=== PATIENT | female | born 1980 | race Caucasian/White ===

== ENCOUNTER 2016-10-15 12:12 | Emergency (ER) | payer OTHER ==
[2016-10-15 12:50] LABS: EOSINOPHIL (%) 0.3 % (0-5); HEMATOCRIT 38.9 % (36.0-46.0); IMMATURE GRANULOCYTE (%) 0.4 % (0.0-0.7); INSTRUMENT ABS NEUTROPHIL CT 7.7 K/uL; LYMPHOCYTE COUNT 0.5 K/uL (1.0-2.8); MCH 33.1 PG (29.0-34.0); MCHC 33.9 G/DL (30.0-36.0); MCV 97.5 FL (83-99); MEAN PLAT.VOLUME 9.2 uM^3 (9.5-12.4); MONOCYTE (%) 8.1 % (3-12); MONOCYTE COUNT 0.7 K/uL (0-0.8); NEUTROPHIL COUNT 7.7 K/uL (1.8-6.4); PLATELET COUNT 318 K/uL (156-360); RBC DIS.WIDTH-CV 11.6 % (11.8-14.6); RBC DIS.WIDTH-SD 41.8 % (39-53); RED BLOOD COUNT 3.99 M/uL (3.80-5.20); WHITE BLOOD COUNT 9.1 K/uL (4.1-10.2)
[2016-10-15 12:59] LABS: AMYLASE 52 IU/L (1-118); CHLORIDE 101 mEq/L (99-109); POTASSIUM 4.4 mEq/L (3.7-5.4); SODIUM 133 mEq/L (136-147)
[2016-10-15 13:01] LABS: GLUCOSE 106 mg/dL (70-99)
[2016-10-15 13:03] LABS: ANION GAP 12 MEQ/L (2-14)
[2016-10-15 13:04] LABS: SERUM ETHYL ALCOHOL 29 mg/dL
[2016-10-15 13:05] LABS: GFR ESTIMATE (CALCULATED) > 59 mL/min/
[2016-10-15 13:06] LABS: UREA NITROGEN (BUN) 10 mg/dL (9-23)
[2016-10-15 13:08] LABS: LIPASE 17 U/L (1.0-51.0)
[2016-10-15 13:14] LABS: QUANTITATIVE HCG < 4.0 MIU/ML
[2016-10-15] MEDS ORDERED: PERCOCET 5/31 TABLET PO (14:44)
[2016-10-19] MEDS ORDERED: ADDERALL XR 1010 MG PO (16:02)
[2016-10-19] MEDS ORDERED: FISH OIL 1,0001 EAC7 PO (16:06)
[2016-10-19] MEDS ORDERED: [UNRECOGNIZED DRUG - OTHER] PO (16:07)
[2016-10-19] MEDS ORDERED: [UNRECOGNIZED DRUG - OTHER] PO (16:08)
[2016-10-19] MEDS ORDERED: EPIPEN ADU0.3 MG/0.3 IM (16:08)
== END 2016-10-15 15:25 | disposition home or self-care (01) ==
LOC: TRA 12:12
PROVIDERS: Emergency Medicine
DX: S42.021A Displaced fracture of shaft of right clavicle, initial encounter for closed fracture (principal); S60.512A Abrasion of left hand, initial encounter; S70.311A Abrasion, right thigh, initial encounter; S80.211A Abrasion, right knee, initial encounter; S30.810A Abrasion of lower back and pelvis, initial encounter; S06.9X9A Unspecified intracranial injury with loss of consciousness of unspecified duration, initial encounter; V10.4XXA Pedal cycle driver injured in collision with pedestrian or animal in traffic accident, initial encounter; Y93.55 Activity, bike riding
CPT/HCPCS: 70450; 71260; 72125; 72128; 72129; 72132; 73000; 73030; 74177; 80048; 81003; 82150; 83690; 84702; 85025; 86850; 86900; 86901; 99281; 99285; G0480; J2270

== ENCOUNTER 2016-10-20 06:43 | Day surgery (SDC) | payer OTHER ==
[~2016-10-20] VITALS: Ht 167.6 cm; Wt 59.0 kg
[~2016-10-20 06:43] MED LIST: ADDERALL XR 1010 MG PO; EPIPEN ADU0.3 MG/0.3 IM; FISH OIL 1,0001 EAC7 PO; PERCOCET 5/31 TABLET PO; [UNRECOGNIZED DRUG - OTHER] PO; [UNRECOGNIZED DRUG - OTHER] PO
[2016-10-20] MEDS ORDERED: DILAUDID2 MG PO (07:04)
[2016-10-20] MEDS ORDERED: VITAMIN C1000 MG PO (07:05)
[2016-10-20 07:12] VITALS: BP 120/79
[2016-10-20 08:20] LABS: METH RESISTANT S AUREUS PCR NEGATIVE (NEGATIVE)
[2016-10-20 08:21] LABS: PROBE CHECK PASS; SPECIMEN PROCESSING CONTROL PASS
[2016-10-20 12:15] VITALS: BP 136/84
[2016-10-20 13:30] VITALS: BP 122/74
== END 2016-10-20 13:45 | disposition home or self-care (01) ==
LOC: SDC 06:43
PROVIDERS: Orthopaedic Surgery
PROC: 0PS904Z Reposition Right Clavicle with Internal Fixation Device, Open Approach (ICD-10-PCS; principal; 2016-10-20)
DX: S42.031A Displaced fracture of lateral end of right clavicle, initial encounter for closed fracture (principal); V10.0XXA Pedal cycle driver injured in collision with pedestrian or animal in nontraffic accident, initial encounter; Y93.55 Activity, bike riding; Y92.488 Other paved roadways as the place of occurrence of the external cause; F41.8 Other specified anxiety disorders; F17.210 Nicotine dependence, cigarettes, uncomplicated
CPT/HCPCS: 73000; 73020; 76000; 87641; C1713; J0131; J0690; J1100; J1170; J2250; J2405; J3010

== ENCOUNTER 2017-05-01 13:16 | Day surgery (SDC) | payer OTHER ==
[~2017-05-01] VITALS: Ht 167.6 cm; Wt 56.7 kg
[~2017-05-01 13:16] MED LIST changes: +DILAUDID2 MG PO; +VITAMIN C1000 MG PO; +XANAX0.5 MG PO
[2017-05-01 13:46] VITALS: BP 138/99
[2017-05-01 17:45] VITALS: BP 135/91
[2017-05-01 18:22] VITALS: BP 139/83
== END 2017-05-01 18:39 | disposition home or self-care (01) ==
LOC: SDC 13:16
PROC: 0PP904Z Removal of Internal Fixation Device from Right Clavicle, Open Approach (ICD-10-PCS; principal; 2017-05-01)
DX: T84.228A Displacement of internal fixation device of other bones, initial encounter (principal); Z87.891 Personal history of nicotine dependence
CPT/HCPCS: 73000; 76000; 87641; J0131; J0690; J1100; J1170; J2250; J2405; J3010